=== PATIENT | male | born 1950 | race Caucasian/White ===

== ENCOUNTER 2017-06-08 21:56 | Observation (INO) | payer OTHER ==
[~2017-06-08] VITALS: Ht 177.8 cm; Wt 88.6 kg
[~2017-06-08 21:56] MED LIST: ASPIRIN81 M1 PO; COMBIVENT200 INHALA PO; Diflucan PO; Dilaudid PO; FLOMAX0.4 MG PO; HYDROCHLOROTHIA25 MG PO; LASIX20 MG PO; LOPERAMIDE2 MG PO; Lasix PO; Levaquin PO; PRILOSEC20 MG PO; PRILOSEC40 MG PO; PROMETHAZINE HC25 M1 PO; SIMVASTATIN80 MG PO; TOPAMAX25 MG PO; TOPROL XL100 MG PO; TOPROL XL200 MG PO; Toprol XL PO; ZESTRIL,PRINIVI10 M1 PO; ZESTRIL,PRINIVI40 MG PO; ZITHROMAX Z-PA250 MG
[2017-06-08 22:51] LABS: BASE EXCESS -3.7 mEq/L (-3 to +3); BICARBONATE 24.1 mEq/L (22-26); CARBOXY HGB 1.9 % (0-5); METHEMOGLOBIN 0.1 % (0-1.5); PCO2 55 mm Hg (35-45); PO2 66 mm Hg (80-100); SITE RR; pH 7.25 (7.35-7.45)
[2017-06-08 22:52] LABS: COMMENTS - BLOOD GASES A+C+; FI02 21 %; TOTAL RESP RATE 20 resp/min
[2017-06-08 22:53] LABS: BASOPHIL (%) 0.2 % (0-1); EOSINOPHIL (%) 1.5 % (0-5); EOSINOPHIL COUNT 0.1 K/uL (0-0.3); HEMATOCRIT 39.6 % (38.0-50.0); HEMOGLOBIN 13.4 G/DL (12.5-16.6); IMMATURE GRANULOCYTE (%) 0.5 % (0.0-0.7); LYMPHOCYTE (%) 12.7 % (15-42); LYMPHOCYTE COUNT 1.2 K/uL (1.0-2.8); MCH 29.8 PG (29.0-34.0); MCHC 33.8 G/DL (30.0-36.0); MCV 88.2 FL (86-99); MONOCYTE (%) 7.3 % (3-12); MONOCYTE COUNT 0.7 K/uL (0-0.8); NEUTROPHIL (%) 77.8 % (45-76); NEUTROPHIL COUNT 7.2 K/uL (1.8-6.4); PLATELET COUNT 227 K/uL (156-360); RBC DIS.WIDTH-CV 13.1 % (11.8-14.6); RBC DIS.WIDTH-SD 42.4 % (39-53); RED BLOOD COUNT 4.49 M/uL (4.00-5.50); WHITE BLOOD COUNT 9.3 K/uL (4.1-10.2)
[2017-06-08 23:02] LABS: ALBUMIN 4.3 g/dL (3.2-4.8)
[2017-06-08 23:03] LABS: CHLORIDE 111 mEq/L (99-109); POTASSIUM 4.4 mEq/L (3.7-5.4); SODIUM 143 mEq/L (136-147)
[2017-06-08 23:05] LABS: GLUCOSE 103 mg/dL (70-99); TOTAL PROTEIN 7.5 g/dL (6.4-8.3)
[2017-06-08 23:07] LABS: TOTAL BILIRUBIN 0.4 mg/dL (0.0-1.0)
[2017-06-08 23:08] LABS: SERUM ETHYL ALCOHOL < 10 mg/dL
[2017-06-08 23:09] LABS: ALKALINE PHOSPHATASE 101 IU/L (3-129); CREATININE 1.2 mg/dL (0.6-1.3); GFR ESTIMATE (CALCULATED) > 59 mL/min/ (58.99-99999)
[2017-06-08 23:10] LABS: AST (GOT) 22 IU/L (2-34)
[2017-06-08 23:11] LABS: UREA NITROGEN (BUN) 21 mg/dL (9-23)
[2017-06-08 23:12] LABS: ALT (GPT) 21 IU/L (3-49); SALICYLATE < 5.0 MG/DL (15-30)
[2017-06-08 23:13] LABS: ACETAMINOPHEN (TYLENOL) < 10 mcg/mL (10-30)
[2017-06-08 23:15] LABS: TROP-I INTERPRETATION NEGATIVE; TROPONIN-I 0.02 ng/mL (0.0-0.30)
[2017-06-08 23:17] LABS: APPEARANCE CLEAR ((CLEAR)); BILIRUBIN NEGATIVE; BLOOD NEGATIVE; COLOR YELLOW ((YELLOW)); GLUCOSE (STRIP) NEGATIVE; KETONES NEGATIVE; LEUKOCYTES NEGATIVE; NITRITE NEGATIVE; PROTEIN (STRIP) NEGATIVE; UCUL ADDED? NO; UROBILINOGEN 0.2 MG/DL (0.2-1.0)
[2017-06-08 23:26] LABS: AMPHETAMINE PRESUMPTIVE POSITIVE (500 ng/mL); COCAINE NEGATIVE (150 ng/mL); METHAMPHETAMINE NEGATIVE (500 ng/mL); OPIATES (MORPHINE) PRESUMPTIVE POSITIVE (100 ng/mL); PHENCYCLIDINE NEGATIVE (25 ng/mL); THC CANNABINOIDS NEGATIVE (50 ng/mL)
[2017-06-08 23:27] LABS: BARBITURATES NEGATIVE (200 ng/mL); BENZODIAZEPINES NEGATIVE (150 ng/mL); BUPRENORPHINE NEGATIVE (10 ng/mL); METHADONE NEGATIVE (200 ng/mL); OXYCODONE PRESUMPTIVE POSITIVE (100 ng/mL); PROPOXYPHENE NEGATIVE (300 ng/mL); TRICYCLIC ANTIDEPRESSANTS NEGATIVE (300 ng/mL)
[2017-06-09 00:01] LABS: CREATINE KINASE 325 IU/L (1-294)
[2017-06-09 03:32] LABS: HEMATOCRIT 39.1 % (38.0-50.0); HEMOGLOBIN 12.8 G/DL (12.5-16.6); MCH 29.5 PG (29.0-34.0); MCHC 32.7 G/DL (30.0-36.0); MCV 90.1 FL (86-99); PLATELET COUNT 172 K/uL (156-360); RBC DIS.WIDTH-CV 13.2 % (11.8-14.6); RBC DIS.WIDTH-SD 43.3 % (39-53); RED BLOOD COUNT 4.34 M/uL (4.00-5.50); WHITE BLOOD COUNT 9.4 K/uL (4.1-10.2)
[2017-06-09 03:58] VITALS: BP 138/67
[2017-06-09 05:31] LABS: TROP-I INTERPRETATION NEGATIVE; TROPONIN-I 0.03 ng/mL (0.0-0.30)
[2017-06-09 05:41] LABS: HDL CHOLESTEROL 68 MG/DL (Desirable>=40); LDL CHOLESTEROL 91 mg/dL (Desirable<100); NON-HDL CHOLESTEROL 101 mg/dL (Desirable<160); TOTAL CHOLESTEROL 169 mg/dL (Desirable<200); TRIGLYCERIDES 51 MG/DL (Normal: <150)
[2017-06-09 07:50] VITALS: BP 115/57
[2017-06-09 10:04] LABS: HEMOGLOBIN A1c (GLYCOHEMOGLOB) 5.5 % (Below 5.7)
[2017-06-09] MEDS ORDERED: PREDNISONE10 MG PO (10:38)
== END 2017-06-09 12:37 | disposition home or self-care (01) ==
LOC: EME → EDBD 21:56 → EME 21:56 → 4SOUTH 06-09 02:04 → EDOF 06-09 02:04 → ENRESERV 06-09 02:06 → 4SOUTH 06-09 03:56
PROVIDERS: Emergency Medicine; Hospitalist
DX: J44.1 Chronic obstructive pulmonary disease with (acute) exacerbation (principal); R09.02 Hypoxemia; R41.82 Altered mental status, unspecified; T40.605A Adverse effect of unspecified narcotics, initial encounter; I11.0 Hypertensive heart disease with heart failure; I50.9 Heart failure, unspecified; G89.29 Other chronic pain; E78.5 Hyperlipidemia, unspecified; Z95.0 Presence of cardiac pacemaker; Z95.810 Presence of automatic (implantable) cardiac defibrillator; Z79.82 Long term (current) use of aspirin; E87.2 Acidosis; Z85.46 Personal history of malignant neoplasm of prostate
CPT/HCPCS: 36600; 70450; 71045; 80053; 80061; 81003; 82140; 82550; 82803; 83036; 83605; 84484; 84999; 85025; 85027; 87502; 93005; 94640 76; 94799; 99202; G0378; G0480; J1650; J2060; J2930

== ENCOUNTER 2017-08-09 17:46 | Emergency (ER) | payer OTHER ==
[~2017-08-09] VITALS: Ht 177.8 cm; Wt 105.4 kg
[~2017-08-09 17:46] MED LIST changes: +PREDNISONE10 MG PO
[2017-08-09 18:01] LABS: BASOPHIL (%) 0.6 % (0-1); EOSINOPHIL (%) 3.5 % (0-5); EOSINOPHIL COUNT 0.2 K/uL (0-0.3); HEMATOCRIT 39.7 % (38.0-50.0); HEMOGLOBIN 13.3 G/DL (12.5-16.6); IMMATURE GRANULOCYTE (%) 0.4 % (0.0-0.7); LYMPHOCYTE (%) 22.8 % (15-42); LYMPHOCYTE COUNT 1.6 K/uL (1.0-2.8); MCH 29.6 PG (29.0-34.0); MCHC 33.5 G/DL (30.0-36.0); MCV 88.2 FL (86-99); MONOCYTE (%) 7.9 % (3-12); MONOCYTE COUNT 0.6 K/uL (0-0.8); NEUTROPHIL (%) 64.8 % (45-76); NEUTROPHIL COUNT 4.5 K/uL (1.8-6.4); PLATELET COUNT 146 K/uL (156-360); RBC DIS.WIDTH-CV 13.7 % (11.8-14.6); RBC DIS.WIDTH-SD 44.3 % (39-53); WHITE BLOOD COUNT 6.9 K/uL (4.1-10.2)
[2017-08-09 18:11] LABS: ALBUMIN 4.2 g/dL (3.2-4.8); CHLORIDE 106 mEq/L (99-109); POTASSIUM 4.7 mEq/L (3.7-5.4); SODIUM 141 mEq/L (136-147)
[2017-08-09 18:13] LABS: GLUCOSE 103 mg/dL (70-99)
[2017-08-09 18:14] LABS: TOTAL PROTEIN 6.9 g/dL (6.4-8.3)
[2017-08-09 18:15] LABS: TOTAL BILIRUBIN 0.3 mg/dL (0.0-1.0)
[2017-08-09 18:16] LABS: SERUM ETHYL ALCOHOL < 10 mg/dL
[2017-08-09 18:17] LABS: ALKALINE PHOSPHATASE 93 IU/L (3-129); GFR ESTIMATE (CALCULATED) > 59 mL/min/ (58.99-99999)
[2017-08-09 18:18] LABS: UREA NITROGEN (BUN) 22 mg/dL (9-23)
[2017-08-09 18:19] LABS: AST (GOT) 17 IU/L (2-34)
[2017-08-09 18:20] LABS: ALT (GPT) 17 IU/L (3-49)
[2017-08-09 18:26] LABS: TROP-I INTERPRETATION NEGATIVE; TROPONIN-I 0.02 ng/mL (0.0-0.30)
[2017-08-09 20:18] LABS: APPEARANCE CLEAR ((CLEAR)); BILIRUBIN NEGATIVE; BLOOD NEGATIVE; COLOR YELLOW ((YELLOW)); GLUCOSE (STRIP) NEGATIVE; KETONES NEGATIVE; LEUKOCYTES NEGATIVE; NITRITE NEGATIVE; PROTEIN (STRIP) NEGATIVE; SPECIFIC GRAVITY 1.019 (1.000-1.030); UCUL ADDED? NO; UROBILINOGEN 0.2 MG/DL (0.2-1.0)
[2017-08-09 20:27] LABS: AMPHETAMINE NEGATIVE (500 ng/mL); BARBITURATES NEGATIVE (200 ng/mL); BENZODIAZEPINES NEGATIVE (150 ng/mL); BUPRENORPHINE NEGATIVE (10 ng/mL); COCAINE NEGATIVE (150 ng/mL); METHADONE PRESUMPTIVE POSITIVE (200 ng/mL); METHAMPHETAMINE NEGATIVE (500 ng/mL); OPIATES (MORPHINE) NEGATIVE (100 ng/mL); OXYCODONE PRESUMPTIVE POSITIVE (100 ng/mL); PHENCYCLIDINE NEGATIVE (25 ng/mL); PROPOXYPHENE NEGATIVE (300 ng/mL); THC CANNABINOIDS NEGATIVE (50 ng/mL); TRICYCLIC ANTIDEPRESSANTS NEGATIVE (300 ng/mL)
[2017-08-09 21:04] VITALS: BP 120/63
== END 2017-08-09 21:05 | disposition home or self-care (01) ==
LOC: EME 17:46
PROVIDERS: Emergency Medicine
DX: Z85.46 Personal history of malignant neoplasm of prostate (principal); F11.129 Opioid abuse with intoxication, unspecified; I10 Essential (primary) hypertension; E78.5 Hyperlipidemia, unspecified; J44.9 Chronic obstructive pulmonary disease, unspecified; K21.9 Gastro-esophageal reflux disease without esophagitis; I50.9 Heart failure, unspecified; I25.2 Old myocardial infarction; Z87.891 Personal history of nicotine dependence; Z95.0 Presence of cardiac pacemaker
CPT/HCPCS: 70450; 71045; 80053; 81003; 82948; 84484; 85025; 85379; 93005; 99281; 99285; G0480

== ENCOUNTER 2017-09-26 20:59 | Emergency (ER) | payer OTHER | END 2017-09-26 23:40 | LOC: EME → EDBD 20:59 → EME 23:40 | PROC: 5A12012 Performance of Cardiac Output, Single, Manual (ICD-10-PCS; principal; 2017-09-26) | DX: I46.9 Cardiac arrest, cause unspecified (principal); I25.2 Old myocardial infarction; K21.9 Gastro-esophageal reflux disease without esophagitis; J44.9 Chronic obstructive pulmonary disease, unspecified; I11.0 Hypertensive heart disease with heart failure; I50.9 Heart failure, unspecified; E78.5 Hyperlipidemia, unspecified; Z95.0 Presence of cardiac pacemaker; Z87.891 Personal history of nicotine dependence | CPT/HCPCS: 80048; 81003; 82150; 83605; 83690; 84484; 85025; 85610; 85730; 86850; 86900; 86901; 87040; 92950; 99281; 99285; G0480 ==